=== PATIENT | male | born 1950 | race Caucasian/White ===

== ENCOUNTER → 2019-10-03 14:26 | Outpatient (CLI) | payer MEDICARE, SELFPAY | PROVIDERS: Visit Provider Nurse Practitioner Family | DX: J02.9 Acute pharyngitis, unspecified (principal) | CPT/HCPCS: 87070 ==

== ENCOUNTER → 2020-01-15 07:01 | Outpatient (CLI) | payer MEDICARE, SELFPAY ==
[2020-01-15 08:05] LABS: Alanine Aminotransferase 48 IU/L (<50); Albumin 4.6 g/dL (3.5-5.0); Albumin Globulin Ratio 1.5 (1.0-2.8); Alkaline Phosphatase 63 U/L (38-126); Aspartate Aminotransferase 37 IU/L (17-59); BUN Creatinine Ratio 11.8 (6-22); Blood Urea Nitrogen 10 mg/dL (9-20); Calcium 9.8 mg/dL (8.4-10.2); Carbon Dioxide 28 mmol/L (22-32); Chloride 105 mmol/L (98-107); Cholesterol 193 mg/dL (140-199); Estimated Glomerular Filt Rate > 60.0 mL/min (>60); Globulin 3.1 g/dL (1.7-4.1); Glucose 110 mg/dL (80-110); HDL Cholesterol 44 mg/dL (40-60); HEMOLYSIS < 15 (0-50); LDL Cholesterol Calculated 112 mg/dL (<100); Potassium 4.5 mmol/L (3.4-5.1); Sodium 139 mmol/L (137-145); Total Protein 7.7 g/dL (6.3-8.2); Triglycerides 187 mg/dL (35-150)
[2020-01-15 08:06] LABS: Add Manual Diff / Slide Review NO; Basophils Absolute Auto 100 /uL (0-100); Basophils Percent Auto 1.1 % (0-2); Eosinophils Absolute Auto 100 /uL (0-450); Eosinophils Percent Auto 2.2 % (2-4); Hematocrit 47.9 % (41-53); Hemoglobin 16.5 g/dL (13.5-17.5); Lymphocytes Absolute Auto 1900 /uL (1100-4500); Lymphocytes Percent Auto 32.2 % (25-40); Mean Corpuscular HGB Conc 34.4 % (30-36); Mean Corpuscular Volume 93.1 fL (80-100); Monocytes Absolute Auto 600 /uL (0-900); Monocytes Percent Auto 10.4 % (3-14); Neutrophils Absolute Auto 3200 /uL (1500-7000); Neutrophils Percent Auto 54.1 % (50-75); Platelet Count 184 X10^3/uL (150-400); Red Blood Cell Count 5.14 X10^6/uL (4.5-5.9); Red Cell Distribution Width 12.9 % (11.6-14.8); White Blood Cell Count 5.8 X10^3/uL (4.5-11.0)
[2020-01-15 08:29] LABS: Free T3, Triiodothyronine Free 3.92 pg/mL (2.77-5.27); Free T4, Direct Thyroxine 0.94 ng/dL (0.78-2.19)
[2020-01-15 08:43] LABS: Thyroid Stimulating Hormone 1.98 uIU/mL (0.47-4.68)
== END ==
PROVIDERS: PCP Family Medicine; Referring Provider Family Medicine; Visit Provider Family Medicine
DX: Z13.29 Encounter for screening for other suspected endocrine disorder (principal); E55.9 Vitamin D deficiency, unspecified; E78.5 Hyperlipidemia, unspecified; I10 Essential (primary) hypertension; N40.1 Benign prostatic hyperplasia with lower urinary tract symptoms; Z12.11 Encounter for screening for malignant neoplasm of colon
CPT/HCPCS: 36415; 80053; 80061; 82274; 82306; 84153; 84439; 84443; 84481; 85025

== ENCOUNTER → 2020-09-01 15:55 | Outpatient (CLI) | payer MEDICARE, SELFPAY ==
--- NOTE | 2020-09-01 16:19 | DI.RAD.S_ITS ---
PROCEDURE: XR KUB INDICATIONS: possible kidney stone R/O blockage TECHNIQUE: One view of the abdomen acquired. COMPARISON: None. FINDINGS: Surgical changes and devices: None. Bowel: Bowel gas pattern is normal. Soft tissues: No suspicious abdominal calcifications. Visualized solid organ contours appear normal in size. Right upper quadrant presumed cholecystectomy clips. Bones: No suspicious bony lesions. IMPRESSION: Nonspecific bowel gas pattern. Scattered surgical clips right upper quadrant likely reflect prior cholecystectomy. A urinary tract stone is not seen. Dictated by: Chris Hood M.D. on 09/01/2020 at 16:49 Approved by: Chris Hood M.D. on 09/01/2020 at 16:49
[2020-09-01 16:51] LABS: Hematocrit 46.1 % (41-53); Hemoglobin 15.6 g/dL (13.5-17.5); Mean Corpuscular HGB Conc 33.8 % (30-36); Mean Corpuscular Hemoglobin 31.6 PG (26-34); Mean Corpuscular Volume 93.7 fL (80-100); Platelet Count 177 X10^3/uL (150-400); Red Blood Cell Count 4.93 X10^6/uL (4.5-5.9); Red Cell Distribution Width 13.1 % (11.6-14.8); White Blood Cell Count 6.9 X10^3/uL (4.5-11.0)
[2020-09-01 17:08] LABS: BUN Creatinine Ratio 20.5 (6-22); Blood Urea Nitrogen 15 mg/dL (9-20); Calcium 9.2 mg/dL (8.4-10.2); Carbon Dioxide 25 mmol/L (22-32); Chloride 105 mmol/L (98-107); Estimated Glomerular Filt Rate > 60.0 mL/min (>60); Glucose 123 mg/dL (80-110); HEMOLYSIS 19 (0-50); Potassium 3.7 mmol/L (3.4-5.1); Sodium 138 mmol/L (137-145)
[2020-09-01 19:08] LABS: Bacteria Urine None Seen; WBC Urine None Seen (0-5/HPF)
[2020-09-01 19:19] LABS: Appearance Urine UA CLOUDY; Bilirubin Urine UA NEGATIVE (NEGATIVE); Color Urine UA YELLOW; Glucose Urine UA NEGATIVE (Negative); Ketones Urine UA TRACE (NEGATIVE); Leukocyte Esterase Urine UA NEGATIVE (NEGATIVE); Nitrite Urine UA NEGATIVE (Negative); Occult Blood Urine UA 2+ (Negative); Protein Urine UA NEGATIVE (Negative); Specific Gravity Urine UA 1.025 (1.000-1.035); Urobilinogen Urine UA 0.2 E.U./dL (0.2)
[2020-09-01 19:24] LABS: Amorphous Sediment Urine 3+; RBC Urine 1-5/HPF (0-5/HPF)
[2020-09-01 19:25] LABS: Culture Indicated Urine Cult Not Indicated
== END ==
PROVIDERS: PCP Family Medicine; Referring Provider Nurse Practitioner Family; Visit Provider Nurse Practitioner Family
DX: Z00.00 Encounter for general adult medical examination without abnormal findings (principal); M54.5 Low back pain; R10.9 Unspecified abdominal pain; R31.9 Hematuria, unspecified; Z87.442 Personal history of urinary calculi
CPT/HCPCS: 36415; 74018; 80048; 81001; 85027

== ENCOUNTER → 2020-11-05 08:58 | Outpatient (CLI) | payer MEDICARE, SELFPAY ==
[2020-11-05 10:32] LABS: Calcium 9.4 mg/dL (8.4-10.2); Uric Acid 6.8 mg/dL (3.5-8.5)
[2020-11-05 11:02] LABS: Prostate Specific Antigen 5.81 ng/mL (0.10-4.00)
== END ==
PROVIDERS: PCP Family Medicine; Referring Provider Specialist; Visit Provider Specialist
DX: R31.9 Hematuria, unspecified (principal); Z87.442 Personal history of urinary calculi; R97.20 Elevated prostate specific antigen [PSA]
CPT/HCPCS: 36415; 82310; 84153; 84550

== ENCOUNTER → 2020-11-10 09:08 | Outpatient (CLI) | payer MEDICARE, SELFPAY ==
--- NOTE | 2020-11-10 09:09 | DI.CT.S_ITS ---
PROCEDURE: CT KIDNEY URETER BLADDER (KUB) INDICATIONS: hematuria TECHNIQUE: Noncontrast 5 mm thick sections acquired from the diaphragms to the symphysis. 5 mm thick coronal and sagittal reformats were then performed. For radiation dose reduction, the following was used: automated exposure control, adjustment of mA and/or kV according to patient size. COMPARISON: None. FINDINGS: Image quality: Excellent. Lung bases: Lung bases are clear. Heart size is normal. Urinary system: No hydronephrosis. Increased attenuation lesion with calcifications seen in the right kidney measuring approximately 1.3 cm image 30/2 which is indeterminate. Ureters appear nondilated. The bladder is largely decompressed. Other solid organs: Liver is normal in size. Gallbladder is surgically absent. Pancreas is normal in contours. Spleen is normal in size. No adrenal nodules. Peritoneum and bowel: Unenhanced bowel loops demonstrate normal wall thickness and caliber. No free fluid or air. Normal appendix. Colonic diverticulosis is seen without evidence of acute complication. Nodes and vessels: No retroperitoneal or mesenteric adenopathy by size criteria. Aorta and inferior vena cava are normal in caliber. Abdominal wall: No ventral hernias. Pelvis: No free pelvic fluid. Fat containing left inguinal hernia. Bones: No suspicious bony lesions. No vertebral body compression fractures. IMPRESSION: No hydronephrosis. No urolithiasis. 1.3 cm right renal lesion, with amorphous and scattered calcifications, technically indeterminate. Given the absence of any relevant prior studies, recommend continued surveillance to exclude malignant possibilities with CT in 6 months for initial follow-up. Additional chronic and incidental findings as above. Dictated by: Jd Weber M.D. on 11/10/2020 at 9:51 Approved by: Jd Weber M.D. on 11/10/2020 at 9:59
== END ==
PROVIDERS: PCP Family Medicine; Referring Provider Specialist; Visit Provider Specialist
DX: R31.9 Hematuria, unspecified (principal); Z87.442 Personal history of urinary calculi; N28.89 Other specified disorders of kidney and ureter
CPT/HCPCS: 74176

== ENCOUNTER → 2020-11-19 11:21 | Outpatient (CLI) | payer MEDICARE, SELFPAY ==
[2020-11-19] MEDS: COVID-19 VACC #1, MRNA(MOD) 100 MCG/0.5 ML VIAL IM (11:28)
== END ==
PROVIDERS: PCP Family Medicine; Visit Provider Internal Medicine
DX: Z23 Encounter for immunization (principal)
CPT/HCPCS: 0011A; 91301

== ENCOUNTER → 2020-12-17 12:22 | Outpatient (CLI) | payer MEDICARE, SELFPAY ==
[2020-12-17] MEDS: COVID-19 VACC #2, MRNA(MOD) 100 MCG/0.5 ML VIAL IM (12:40)
== END ==
PROVIDERS: PCP Family Medicine; Visit Provider Internal Medicine
DX: Z23 Encounter for immunization (principal)
CPT/HCPCS: 0012A; 91301

== ENCOUNTER → 2021-01-31 07:19 | Outpatient (CLI) | payer MEDICARE, SELFPAY ==
[2021-01-31 08:08] LABS: Add Manual Diff / Slide Review NO; Basophils Absolute Auto 0 /uL (0-100); Basophils Percent Auto 0.6 % (0-2); Eosinophils Absolute Auto 100 /uL (0-450); Eosinophils Percent Auto 1.7 % (2-4); Hematocrit 45.3 % (41-53); Lymphocytes Absolute Auto 1800 /uL (1100-4500); Lymphocytes Percent Auto 32.9 % (25-40); Mean Corpuscular HGB Conc 35.2 % (30-36); Mean Corpuscular Hemoglobin 32.5 PG (26-34); Mean Corpuscular Volume 92.3 fL (80-100); Monocytes Absolute Auto 600 /uL (0-900); Monocytes Percent Auto 10.4 % (3-14); Neutrophils Absolute Auto 3000 /uL (1500-7000); Neutrophils Percent Auto 54.4 % (50-75); Platelet Count 182 X10^3/uL (150-400); Red Blood Cell Count 4.91 X10^6/uL (4.5-5.9); Red Cell Distribution Width 12.8 % (11.6-14.8); White Blood Cell Count 5.5 X10^3/uL (4.5-11.0)
[2021-01-31 08:16] LABS: Alanine Aminotransferase 40 IU/L (<50); Albumin 4.1 g/dL (3.5-5.0); Albumin Globulin Ratio 1.5 (1.0-2.8); Alkaline Phosphatase 64 U/L (38-126); Aspartate Aminotransferase 34 IU/L (17-59); BUN Creatinine Ratio 17.5 (6-22); Bilirubin Total 0.8 mg/dL (0.2-1.3); Blood Urea Nitrogen 14 mg/dL (9-20); Calcium 9.2 mg/dL (8.4-10.2); Carbon Dioxide 27 mmol/L (22-32); Chloride 106 mmol/L (98-107); Cholesterol 174 mg/dL (140-199); Estimated Glomerular Filt Rate > 60.0 mL/min (>60); Globulin 2.7 g/dL (1.7-4.1); Glucose 105 mg/dL (80-110); HDL Cholesterol 53 mg/dL (40-60); HEMOLYSIS < 15 (0-50); LDL Cholesterol Calculated 92 mg/dL (<100); Sodium 138 mmol/L (137-145); Total Protein 6.8 g/dL (6.3-8.2); Triglycerides 143 mg/dL (35-150)
[2021-01-31 09:04] LABS: Prostate Specific Antigen 4.27 ng/mL (0.10-4.00)
== END ==
PROVIDERS: PCP Family Medicine; Referring Provider Specialist; Visit Provider Family Medicine
DX: R97.20 Elevated prostate specific antigen [PSA] (principal); I10 Essential (primary) hypertension
CPT/HCPCS: 36415; 80053; 80061; 84153; 85025

== ENCOUNTER 2021-08-02 09:35 | Emergency (ER) | payer MEDICARE, SELFPAY ==
[2021-08-02] VITALS (9 sets, daily range): BP systolic 134–180; BP diastolic 66–92; PULSE 67–85; RESP 14–34; TEMP 37.4; O2SAT 94–100; BMI 33.0
--- NOTE | 2021-08-02 09:44 | ED_ITS ---
HPI - Abdominal Pain General Chief Complaint: Abdominal Pain Stated Complaint: Poss Diverticulitis Time Seen by Provider: 08/02/21 09:41 Source: patient Mode of arrival: Ambulatory Limitations: no limitations History of Present Illness HPI narrative: 70-year-old male nonsmoker with history of hypertension presents with his in the chief complaint of left lower quadrant pain gradually worsening over the past few days. He states it is worse with motion and improves with rest. It had started off a bit more generalized and is now solidly centered in his left lower quadrant. He has had some decreased appetite but denies nausea or vomiting. He denies any diarrhea or constipation. He has had no fever or chills. Related Data Home Medications Medication Instructions Recorded Confirmed Total restore supplement PO 02/24/20 02/24/21 vitamin-D 3 PO 02/24/20 02/24/21 Previous Rx's Medication Instructions Recorded amlodipine 5 mg tablet See Rx Instructions .ROUTE 05/03/21 .COMPLEX #90 tab lisinopril 5 mg tablet See Rx Instructions .ROUTE 05/03/21 .COMPLEX #90 tab rosuvastatin 5 mg tablet See Rx Instructions .ROUTE 05/03/21 .COMPLEX #90 tab amoxicillin 875 mg-potassium 1 tab PO BID #20 tab 08/02/21 clavulanate 125 mg tablet (Augmentin) hydrocodone 5 mg-acetaminophen 325 1 tab PO Q4-6H PRN #10 tab 08/02/21 mg tablet ondansetron 4 mg disintegrating 4 mg PO TID-QID PRN #10 tab 08/02/21 tablet Allergies Allergy/AdvReac Type Severity Reaction Status Date / Time Sulfa (Sulfonamide Allergy Intermediate HIVES Verified 08/02/21 09:42 Antibiotics) Patient History Medical History BPH (benign prostatic hyperplasia) BPH w urinary obs/LUTS Chicken pox (~1954) Chronic back pain (~1999) Elevated PSA Facial rash Fractures (~1987) Hematuria History of elevated PSA (~2017) History of kidney stones History of skin disorder (~2017) Hypertension (~1987) Kidney stones (~2009) Left flank pain Measles (~1955) Mumps (~1955) Seborrheic keratosis Tinnitus Vision disorder Vitamin D deficiency Surgical History Anesthesia History of cholecystectomy (~2003) History of repair of ACL (~2009) S/P right rotator cuff repair (~2006) Family History Father Sepsis Multiple myeloma Cancer of kidney Mother Metabolic encephalopathy Alcohol abuse Sister Diabetes mellitus Social History marital status: Smoking Status: Never smoker alcohol intake: current caffeine: Yes Smoking Status: Never smoker alcohol intake frequency: holidays/special occasions only Substance Use Type: does not use Exam Narrative Exam Narrative: GENERAL: [70] year old patient appears stated age. Well- developed patient, in mild distress. HEAD: Atraumatic. Normocephalic. EYES: Pupils equal round and reactive. Extraocular motions intact. No scleral icterus. No injection or drainage. ENT: Nose without bleeding, purulent drainage. Throat without erythema, tonsillar hypertrophy or exudate. Airway patent. NECK: Trachea midline. Non tender CARDIOVASCULAR: Regular rate and rhythm without murmurs, gallops, or rubs. RESPIRATORY: Clear to auscultation. Breath sounds equal bilaterally. No wheezes, rales, or rhonchi. GASTROINTESTINAL: Abdomen soft, tennder in LLQ without rebound, nondistended. EXTREMITIES: No edema or joint tenderness. BACK: Nontender without deformity or crepitance. No flank tenderness. NEURO: AOx3. SKIN: No rash or erythema of visible areas Initial Vital Signs Initial Vital Signs: Vital Signs Temperature 99.3 F 08/02/21 09:38 Pulse Rate 85 08/02/21 09:38 Respiratory Rate 14 08/02/21 09:38 Blood Pressure 180/92 H 08/02/21 09:38 Pulse Oximetry 97 08/02/21 09:38 Course Orders Ordered: ED Orders 08/02/21 10:32 CT abdomen pelvis w con Stat Vital Signs Vital signs: Vital Signs - 8 hr 08/02/21 11:30 08/02/21 11:49 Pulse Rate 67 74 Respiratory Rate 27 H 18 Blood Pressure 134/67 134/67 Pulse Oximetry 94 100 MDM - Abdominal Pain Lab Data Result diagrams: 08/02/21 10:07 08/02/21 10:07 Labs: Lab Results 10/05/21 10/05/21 Range/Units 10:07 10:07 WBC 12.0 H (4.5-11.0) X10^3/uL RBC 4.69 (4.5-5.9) X10^6/uL Hgb 14.8 (13.5-17.5) g/dL Hct 43.3 (41-53) % MCV 92.5 (80-100) fL MCH 31.5 (26-34) PG MCHC 34.1 (30-36) % RDW 13.0 (11.6-14.8) % Plt Count 186 (150-400) X10^3/uL Neut % (Auto) 76.8 H (50-75) % Lymph % (Auto) 13.2 L (25-40) % [place] % (Auto) 9.5 (3-14) % Eos % (Auto) 0.3 L (2-4) % Baso % (Auto) 0.2 (0-2) % Neut # (Auto) 9200 H (5720-1229) /uL Lymph # (Auto) 1600 (9568-1321) /uL [place] # (Auto) 1100 H (0-900) /uL Eos # (Auto) 0 (0-450) /uL Baso # (Auto) 0 (0-100) /uL Sodium 138 (137-145) mmol/L Potassium 3.8 (3.4-5.1) mmol/L Chloride 104 (98-107) mmol/L Carbon Dioxide 25 (22-32) mmol/L BUN 9 (9-20) mg/dL Creatinine 0.79 (0.66-1.25) mg/dL Estimated GFR > 60.0 (>60) mL/min BUN/Creatinine Ratio 11.4 (6-22) Glucose 122 H (80-110) mg/dL Calcium 9.4 (8.4-10.2) mg/dL Total Bilirubin 1.1 (0.2-1.3) mg/dL AST 22 (17-59) IU/L ALT 21 (<50) IU/L Alkaline Phosphatase 59 (38-126) U/L Total Protein 7.2 (6.3-8.2) g/dL Albumin 4.3 (3.5-5.0) g/dL Globulin 2.9 (1.7-4.1) g/dL Albumin/Globulin Ratio 1.5 (1.0-2.8) Lipase 42 (23-300) U/L Imaging Data CT scan - abdomen/pelvis: Radiologist's Impression: [address] [address] [address] Scan Report Signed Patient: Mando De La Cruz MR#: [id number] : 1950 Acct:[id number] Age/Sex: 70 / M Date of Service: 08/02/21 Loc: ED Accession Number: [id number] ?? Procedure: CT abdomen pelvis w con Ordering Provider: Fortino Carrasquillo D.O. PROCEDURE:? CT ABDOMEN PELVIS W CON ? INDICATIONS:? severe LLQ pain, hx diverticulosis ? TECHNIQUE:? After the administration of intravenous contrast, axial sections acquired from the lung bases to the pubic symphysis.? Coronal and sagittal reformats were performed.? For radiation dose reduction, the following was used:? automated exposure control, adjustment of mA and/or kV according to patient size.? ? COMPARISON:? [facility], CT, CT KIDNEY URETER BLADDER (KUB), 11/10/2020, 9:11. ? FINDINGS:? Image quality:? Excellent.? ? Lung bases:? Unremarkable. Heart:? Moderate calcification of the coronary vasculature. ? ABDOMEN: Liver:? Unremarkable.? ? Gallbladder:? Is surgically absent? ? Biliary ducts:? Unremarkable.? ? Pancreas:? Unremarkable.? ? Spleen:? Unremarkable.? ? Adrenal Glands:? Unremarkable.? ? Kidneys and Ureters:? No change in calcified focus involving the right interpolar kidney posteriorly which is partially exophytic, measuring roughly 17 mm diameter. ? Stomach and Bowel:? Small hiatal hernia.? Stomach, and small bowel are otherwise unremarkable.? Appendix is normal.? Colon is nondistended.? Diverticulosis of the descending and sigmoid colon is present.? There is moderate thickening with surr ounding fat stranding involving the proximal sigmoid colon. Peritoneum:? No abnormal intraperitoneal fluid.? No free air.? ? Ventral Wall: ? No hernias.? Abdominal Nodes:? No retroperitoneal or mesenteric adenopathy by size criteria.? Vessels:? Aorta and inferior vena cava are normal in size.? ? PELVIS: Pelvic Organs:? Unremarkable.? ? Bladder:? Prostate is enlarged and indents the urinary bladder base, limiting evaluation of the urinary bladder base for masses. Pelvic Nodes: No enlarged lymph nodes.? Miscellaneous: No hernias are seen. ? ? ? Bones:? Unremarkable.? IMPRESSION:? 1. Diverticulitis of the proximal sigmoid colon.? Follow-up colonoscopy is recommended to exclude underlying neoplasm. 2. No change in indeterminate calcified right renal mass.? Urological consultation recommended. 3. Small hiatal hernia . 4. Coronary artery disease. 4. Enlarged prostate which indents the urinary bladder base.? Urinary bladder base neoplasm cannot be excluded.? ? ? Dictated by: Mouna Barajas M.D. on 08/02/2021 at 11:09 ? ? Approved by: Mouna Barajas M.D. on 08/02/2021 at 11:13 ? [facility] Narrative Medical decision making narrative: Patient with left lower quadrant pain for the past few days. He has a very reassuring history and physical exam. CT shows diverticulitis without abscess or perforation. His vital signs are stable. Pain is well controlled and he is able to tolerate orals. Return precautions have been given as questions have been answered to his apparent satisfaction Discharge Plan Departure Patient Disposition: Home Clinical Impression: Diverticulitis Instructions: DI for Diverticulitis Activity Restrictions/Additional Instructions: *You have been diagnosed with [abdominal pain secondary to diverticulitis. *What to do: *Please continue to take your regular medications as directed. [ x] New medication prescriptions sent to your pharmacy: [[facility] ] [ ] New medication written as a paper prescription [ ] No new medications given *Please follow up with your primary care provider in 2-3 days, call for an appointment. Let them know you were seen in the Emergency Department and that we ask that you be seen in follow up. We will electronically transmit a record of today's note if your PCP is in our system *If you do not have a primary care provider please contact the [facility] Resource line at [phone]. They will ask some questions about your medical history and help get you set up with a doctor in the community. *Return to Emergency Department if you should have any new, worsening or concerning symptoms, such as [fever greater than 101 F, shaking chills, worsening pain, persistent vomiting or other bothersome symptoms] Prescriptions: New hydrocodone-acetaminophen 5-325 mg tablet 1 tab PO Q4-6H PRN (Reason: pain) Qty: 10 RF: 0 amoxicillin-pot clavulanate [Augmentin] 875-125 mg tablet 1 tab PO BID Qty: 20 RF: 0 ondansetron 4 mg tablet,disintegrating 4 mg PO TID-QID PRN (Reason: nausea and vomiting) Qty: 10 RF: 0 No Action lisinopril 5 mg tablet See Rx Instructions .ROUTE .COMPLEX Qty: 90 RF: 1 amlodipine 5 mg tablet See Rx Instructions .ROUTE .COMPLEX Qty: 90 RF: 1 rosuvastatin 5 mg tablet See Rx Instructions .ROUTE .COMPLEX Qty: 90 RF: 1 vitamin-D 3 5,000 units PO RF: 0 Total restore supplement PO RF: 0 Referrals: Adrien Carver DO [Primary Care Provider] -
[2021-08-02 10:16] LABS: Add Manual Diff / Slide Review NO; Basophils Absolute Auto 0 /uL (0-100); Basophils Percent Auto 0.2 % (0-2); Eosinophils Absolute Auto 0 /uL (0-450); Eosinophils Percent Auto 0.3 % (2-4); Hematocrit 43.3 % (41-53); Hemoglobin 14.8 g/dL (13.5-17.5); Lymphocytes Absolute Auto 1600 /uL (1100-4500); Lymphocytes Percent Auto 13.2 % (25-40); Mean Corpuscular HGB Conc 34.1 % (30-36); Mean Corpuscular Hemoglobin 31.5 PG (26-34); Mean Corpuscular Volume 92.5 fL (80-100); Monocytes Absolute Auto 1100 /uL (0-900); Monocytes Percent Auto 9.5 % (3-14); Neutrophils Absolute Auto 9200 /uL (1500-7000); Neutrophils Percent Auto 76.8 % (50-75); Platelet Count 186 X10^3/uL (150-400); Red Blood Cell Count 4.69 X10^6/uL (4.5-5.9)
--- NOTE | 2021-08-02 10:32 | DI.CT.S_ITS ---
PROCEDURE: CT ABDOMEN PELVIS W CON INDICATIONS: severe LLQ pain, hx diverticulosis TECHNIQUE: After the administration of intravenous contrast, axial sections acquired from the lung bases to the pubic symphysis. Coronal and sagittal reformats were performed. For radiation dose reduction, the following was used: automated exposure control, adjustment of mA and/or kV according to patient size. COMPARISON: [facility], CT, CT KIDNEY URETER BLADDER (KUB), 11/10/2020, 9:11. FINDINGS: Image quality: Excellent. Lung bases: Unremarkable. Heart: Moderate calcification of the coronary vasculature. ABDOMEN: Liver: Unremarkable. Gallbladder: Is surgically absent Biliary ducts: Unremarkable. Pancreas: Unremarkable. Spleen: Unremarkable. Adrenal Glands: Unremarkable. Kidneys and Ureters: No change in calcified focus involving the right interpolar kidney posteriorly which is partially exophytic, measuring roughly 17 mm diameter. Stomach and Bowel: Small hiatal hernia. Stomach, and small bowel are otherwise unremarkable. Appendix is normal. Colon is nondistended. Diverticulosis of the descending and sigmoid colon is present. There is moderate thickening with surrounding fat stranding involving the proximal sigmoid colon. Peritoneum: No abnormal intraperitoneal fluid. No free air. Ventral Wall: No hernias. Abdominal Nodes: No retroperitoneal or mesenteric adenopathy by size criteria. Vessels: Aorta and inferior vena cava are normal in size. PELVIS: Pelvic Organs: Unremarkable. Bladder: Prostate is enlarged and indents the urinary bladder base, limiting evaluation of the urinary bladder base for masses. Pelvic Nodes: No enlarged lymph nodes. Miscellaneous: No hernias are seen. Bones: Unremarkable. IMPRESSION: 1. Diverticulitis of the proximal sigmoid colon. Follow-up colonoscopy is recommended to exclude underlying neoplasm. 2. No change in indeterminate calcified right renal mass. Urological consultation recommended. 3. Small hiatal hernia . 4. Coronary artery disease. 4. Enlarged prostate which indents the urinary bladder base. Urinary bladder base neoplasm cannot be excluded. Dictated by: Mouna Barajas M.D. on 08/02/2021 at 11:09 Approved by: Mouna Barajas M.D. on 08/02/2021 at 11:13
[2021-08-02 10:37] LABS: Alanine Aminotransferase 21 IU/L (<50); Albumin 4.3 g/dL (3.5-5.0); Albumin Globulin Ratio 1.5 (1.0-2.8); Alkaline Phosphatase 59 U/L (38-126); Aspartate Aminotransferase 22 IU/L (17-59); BUN Creatinine Ratio 11.4 (6-22); Bilirubin Total 1.1 mg/dL (0.2-1.3); Blood Urea Nitrogen 9 mg/dL (9-20); Calcium 9.4 mg/dL (8.4-10.2); Carbon Dioxide 25 mmol/L (22-32); Chloride 104 mmol/L (98-107); Estimated Glomerular Filt Rate > 60.0 mL/min (>60); Globulin 2.9 g/dL (1.7-4.1); Glucose 122 mg/dL (80-110); HEMOLYSIS < 15 (0-50); Lipase 42 U/L (23-300); Potassium 3.8 mmol/L (3.4-5.1); Sodium 138 mmol/L (137-145); Total Protein 7.2 g/dL (6.3-8.2)
== END 2021-08-02 11:50 | disposition home or self-care (01) ==
PROVIDERS: Emergency Provider Emergency Medicine; PCP Family Medicine
DX: K57.92 Diverticulitis of intestine, part unspecified, without perforation or abscess without bleeding (principal)
CPT/HCPCS: 36415; 74177; 80053; 83690; 85025; 93005; 99283; 99284

== ENCOUNTER → 2021-08-04 08:49 | Outpatient (CLI) | payer MEDICARE, SELFPAY ==
[2021-08-04 10:19] LABS: Prostate Specific Antigen 5.22 ng/mL (0.10-4.00)
== END ==
PROVIDERS: PCP Family Medicine; Referring Provider Specialist; Visit Provider Specialist
DX: C61 Malignant neoplasm of prostate (principal)
CPT/HCPCS: 36415; 84153

== ENCOUNTER → 2021-08-12 16:01 | Outpatient (CLI) | payer MEDICARE, SELFPAY ==
--- NOTE | 2021-08-12 16:03 | DI.RAD.S_ITS ---
PROCEDURE: XR HAND LT MIN 3V INDICATIONS: trauma TECHNIQUE: 3 views of the hand(s) acquired. COMPARISON: None. FINDINGS: Bones: No fractures or dislocations. Osteoarthritic changes are noted along radial aspect of left wrist and throughout MCP joints and interphalangeal joints. Carpal bones are normally aligned. No suspicious bony lesions. Soft tissues: No suspicious soft tissue calcifications. IMPRESSION: No acute left hand fracture or dislocation. 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 Dictated by: Marcelino Arnett M.D. on 08/12/2021 at 16:19 Approved by: Marcelino Arnett M.D. on 08/12/2021 at 16:22
== END ==
PROVIDERS: PCP Family Medicine; Referring Provider Nurse Practitioner; Visit Provider Nurse Practitioner
DX: R52 Pain, unspecified (principal); M19.042 Primary osteoarthritis, left hand; M19.032 Primary osteoarthritis, left wrist; S69.92XA Unspecified injury of left wrist, hand and finger(s), initial encounter; X58.XXXA Exposure to other specified factors, initial encounter
CPT/HCPCS: 73130

== ENCOUNTER → 2021-09-09 09:00 | Outpatient (CLI) | payer MEDICARE, SELFPAY ==
[2021-09-09] MEDS: COVID-19 VACC #3, MRNA(MOD) 50 MCG/0.25 ML VIAL IM (09:07)
== END ==
PROVIDERS: PCP Family Medicine; Visit Provider Internal Medicine
DX: Z23 Encounter for immunization (principal)
CPT/HCPCS: 0013A; 91301

== ENCOUNTER → 2021-10-03 15:35 | Outpatient (CLI) | payer MEDICARE, SELFPAY ==
[2021-10-03 18:28] LABS: Prostate Specific Antigen 4.65 ng/mL (0.10-4.00)
== END ==
PROVIDERS: PCP Family Medicine; Referring Provider Specialist; Visit Provider Specialist
DX: R97.20 Elevated prostate specific antigen [PSA] (principal)
CPT/HCPCS: 36415; 84153

== ENCOUNTER 2022-01-04 08:48 | Emergency (ER) | payer MEDICARE, SELFPAY ==
[2022-01-04] VITALS (17 sets, daily range): BP systolic 124–183; BP diastolic 62–89; PULSE 65–75; RESP 18–25; TEMP 36.5; O2SAT 92–98; BMI 32.3
--- NOTE | 2022-01-04 09:02 | DI.CT.S_ITS ---
PROCEDURE: CT CERVICAL SPINE WO CON INDICATIONS: syncope TECHNIQUE: Noncontrast 3 mm thick sections acquired from the skull base to the T4 level. Sagittal and coronal reformats were then constructed. For radiation dose reduction, the following was used: automated exposure control, adjustment of mA and/or kV according to patient size. COMPARISON: None. FINDINGS: Image quality: Excellent. Bones: No acute, displaced fracture or retropulsion. The vertebral body heights are maintained. Mild to moderate disc height loss with small posterior disc osteophyte complexes at C5-C7. Visualized superior ribs are intact. Soft tissues: Prevertebral soft tissues are normal in thickness. No paravertebral hematomas. No apical pneumothoraces. IMPRESSION: No acute osseous abnormality. Dictated by: Eric Wayne M.D. on 01/04/2022 at 9:29 Approved by: Eric Wayne M.D. on 01/04/2022 at 9:33
--- NOTE | 2022-01-04 09:02 | DI.CT.S_ITS ---
PROCEDURE: CT HEAD/BRAIN WO CON INDICATIONS: syncope TECHNIQUE: Noncontrast 4.5 mm thick angled axial sections acquired from the foramen magnum to the vertex, with coronal and sagittal reformats. For radiation dose reduction, the following was used: automated exposure control, adjustment of mA and/or kV according to patient size. COMPARISON: None. FINDINGS: Image quality: Excellent. CSF spaces: Basal cisterns are patent. No extra-axial fluid collections. The ventricles are symmetric in size and shape. Brain: No intracranial bleeds or masses. There is cerebral volume loss for age, with resultant ventricular and sulcal prominence. There are periventricular and deep white matter chronic small vessel ischemic changes. There is intracranial internal carotid artery atherosclerosis. Skull and face: Calvarium and visualized facial bones appear intact, without suspicious lesions. Sinuses: Visualized sinuses and mastoids are clear. IMPRESSION: No acute intracranial abnormality. Dictated by: Eric Wayne M.D. on 01/04/2022 at 9:33 Approved by: Eric Wayne M.D. on 01/04/2022 at 9:34
--- NOTE | 2022-01-04 09:05 | DI.RAD.S_ITS ---
PROCEDURE: XR CHEST 1V INDICATIONS: syncope TECHNIQUE: One view of the chest was acquired. COMPARISON: None. FINDINGS: Surgical changes and devices: None. Lungs and pleura: Lungs are clear. No pleural effusions or pneumothorax. Mediastinum: Mediastinal contours appear normal. Heart size is normal. Bones and chest wall: No suspicious bony lesions. Overlying soft tissues appear unremarkable. IMPRESSION: No acute pulmonary process. Dictated by: Layne Looney M.D. on 01/04/2022 at 9:42 Approved by: Layne Looney M.D. on 01/04/2022 at 9:42
--- NOTE | 2022-01-04 09:06 | ED_ITS ---
HPI - Syncope General Chief Complaint: Syncope Stated Complaint: SYNCOPE, HIT HEAD, C COLLAR Time Seen by Provider: 01/04/22 08:53 Source: patient and EMS Mode of arrival: Ambulatory Limitations: no limitations History of Present Illness HPI narrative: Patient is a 71-year-old male with history of hypertension BPH presenting today with a syncopal episode. He says he was standing at the kitchen sink when he suddenly fell backwards and hit his head on a cabinet hand. He had a brief loss of consciousness and his been nauseous with vomiting since. EMS was called. He is not on anti-platelet or anticoagulation medication. He has no numbness tingling weakness. He is complaining of neck pain. He reports not having much warning before passing out. He denies chest pain or palpitations. He woke up this morning feeling his normal self. No fever or chills. Related Data Home Medications Medication Instructions Recorded Confirmed Total restore supplement PO 02/24/20 10/13/21 vitamin-D 3 PO 02/24/20 10/13/21 Previous Rx's Medication Instructions Recorded amoxicillin 875 mg-potassium 1 tab PO BID #20 tab 08/02/21 clavulanate 125 mg tablet (Augmentin) hydrocodone 5 mg-acetaminophen 325 1 tab PO Q4-6H PRN #10 tab 08/02/21 mg tablet ondansetron 4 mg disintegrating 4 mg PO TID-QID PRN #10 tab 08/02/21 tablet amlodipine 5 mg tablet See Rx Instructions .ROUTE 09/21/21 .COMPLEX #90 tab lisinopril 5 mg tablet See Rx Instructions .ROUTE 09/21/21 .COMPLEX #90 tab rosuvastatin 5 mg tablet See Rx Instructions .ROUTE 09/21/21 .COMPLEX #90 tab ondansetron 4 mg disintegrating 4 mg PO Q8H PRN #10 tab 01/04/22 tablet Allergies Allergy/AdvReac Type Severity Reaction Status Date / Time Sulfa (Sulfonamide Allergy Intermediate HIVES Verified 10/13/21 13:27 Antibiotics) Review of Systems Review of Systems Narrative: GENERAL: Denies chills, fatigue, malaise, fever, sweats, travel HEENT: Denies sinus pain, ear pain, sore throat, difficulty swallowing, neck pain RESPIRATORY: Denies dyspnea, cough, wheezing, hemoptysis, sputum. CARDIOVASCULAR: Denies chest pain, palpitations, orthopnea, edema GASTROINTESTINAL: Denies nausea, vomiting, abdominal pain, diarrhea, constipation, melena. : Denies dysuria, frequency, incontinence, hematuria, urinary retention, flank pain. MUSCULOSKELETAL: Denies weakness, joint pain, or bony pain SKIN: No rash, no erythema, no pruritus NEUROLOGIC: + syncope PSYCHIATRIC: No concerning psychosocial issues. 12 point review of systems is negative except for those stated above and HPI Patient History Medical History BPH (benign prostatic hyperplasia) BPH w urinary obs/LUTS Chicken pox (~1954) Chronic back pain (~1999) Elevated PSA Facial rash Fractures (~1987) Hematuria History of elevated PSA (~2017) History of kidney stones History of skin disorder (~2017) Hypertension (~1987) Kidney stones (~2009) Left flank pain Measles (~1955) Mumps (~1955) Seborrheic keratosis Tinnitus Vision disorder Vitamin D deficiency Surgical History Anesthesia History of cholecystectomy (~2003) History of repair of ACL (~2009) S/P right rotator cuff repair (~2006) Family History Father Sepsis Multiple myeloma Cancer of kidney Mother Metabolic encephalopathy Alcohol abuse Sister Diabetes mellitus Social History marital status: Smoking Status: Never smoker alcohol intake: current caffeine: Yes Smoking Status: Never smoker alcohol intake frequency: holidays/special occasions only Substance Use Type: does not use Exam Initial Vital Signs Initial Vital Signs: Vital Signs Temperature 97.7 F 01/04/22 08:48 Pulse Rate 66 01/04/22 08:48 Respiratory Rate 18 01/04/22 08:48 Blood Pressure 183/89 H 01/04/22 08:48 Pulse Oximetry 96 01/04/22 08:48 GENERAL: Alert well-appearing 71-year-old HEENT: Head, posterior abrasion,EOMI, pupils reactive, face symmetric, moist mucous membranes NECK: Cervical tenderness in C-collar CARDIOVASCULAR: Regular rate and rhythm without murmurs, rubs or gallops. RESPIRATORY: Breath sounds equal bilaterally, no wheezes rales or rhonchi. ABDOMEN: Soft, nontender. Normoactive bowel sounds all 4 quadrants. No guardin g or rebound. EXTREMITIES: Normal range of motion, no clubbing or edema. Neurovascularly intact NEUROLOGICAL: Alert and oriented x4.Normal gait and speech. Cranial nerves II through XII grossly intact. Good [id number], good [id number], strength equal bilaterally, no dysarthria or aphasia, sensation in tact to soft touch bilaterally, no visual changes, no facial droop SKIN: Warm, dry, no laceration, no petechiae, no rashes or lesions. Scores NIH Stroke Scale Level of Conciousness: Alert, keenly responsive Ask month/age: Answers both questions correctly. Open/close eyes, close hand: Performs both tasks correctly Best gaze horizontal: Normal Visual mary: No visual loss Facial palsy: Normal symetrical movement Left arm drift: No drift for full 10 sec Right arm drift: No drift for full 10 sec Left leg drift: No drift for full 5 sec Right leg drift: No drift for full 5 sec Limb ataxia: Absent Sensory on face/arms/legs: Normal, no sensory loss Best language: No aphasia, normal Dysarthria: Normal Extinction or inattention: No abnormality Total NIH Stroke scale score: 0 Course Orders Ordered: ED Orders 01/04/22 12:32 Urine Microscopic Stat Discontinued Medications Sodium Chloride (Normal Saline 0.9%) 1,000 mls @ 1,000 mls/hr IV CONT GABBY Last Infusion: 01/04/22 10:59 Dose: 0 mls/hr Documented by: Admin: 01/04/22 09:46 Dose: 1,000 mls/hr Documented by: MYNOR Metoclopramide HCl (Metoclopramide 10 Mg/2 Ml Inj) 10 mg IV NOW ONE Stop: 01/04/22 09:42 Last Admin: 01/04/22 09:47 Dose: 10 mg Documented by: MYNOR Vital Signs Vital signs: Vital Signs - 8 hr 01/04/22 11:12 01/04/22 11:17 01/04/22 11:21 Pulse Rate 69 70 69 Pulse Rate [Orthostatic Lying] Pulse Rate [Orthostatic Sitting] Pulse Rate [Orthostatic Standing] Respiratory Rate 20 20 Blood Pressure 131/64 142/76 H 144/69 H Blood Pressure [Orthostatic Lying] Blood Pressure [Orthostatic Sitting] Blood Pressure [Orthostatic Standing] Pulse Oximetry 96 98 98 01/04/22 11:30 01/04/22 11:34 01/04/22 12:00 Pulse Rate 66 66 Pulse Rate [Orthostatic Lying] 70 Pulse Rate [Orthostatic Sitting] 69 Pulse Rate [Orthostatic Standing] 68 Respiratory Rate 18 19 Blood Pressure 141/68 H 129/62 Blood Pressure [Orthostatic Lying] 131/64 Blood Pressure [Orthostatic Sitting] 142/76 H Blood Pressure [Orthostatic Standing] 144/69 H Pulse Oximetry 97 97 01/04/22 12:20 01/04/22 12:30 01/04/22 12:40 Pulse Rate 75 71 71 Pulse Rate [Orthostatic Lying] Pulse Rate [Orthostatic Sitting] Pulse Rate [Orthostatic Standing] Respiratory Rate 18 18 20 Blood Pressure 129/62 132/64 128/71 Blood Pressure [Orthostatic Lying] Blood Pressure [Orthostatic Sitting] Blood Pressure [Orthostatic Standing] Pulse Oximetry 98 94 95 MDM - Syncope Lab Data Result diagrams: 01/04/22 08:27 01/04/22 08:27 Labs: Lab Results 01/04/22 01/04/22 01/04/22 Range/Units 08:27 08:27 12:32 WBC 9.4 (4.5-11.0) X10^3/uL RBC 5.11 (4.5-5.9) X10^6/uL Hgb 16.2 (13.5-17.5) g/dL Hct 47.6 (41-53) % MCV 93.0 (80-100) fL MCH 31.7 (26-34) PG MCHC 34.1 (30-36) % RDW 13.0 (11.6-14.8) % Plt Count 230 (150-400) X10^3/uL Neut % (Auto) 47.0 L (50-75) % Lymph % (Auto) 40.3 H (25-40) % [place] % (Auto) 10.5 (3-14) % Eos % (Auto) 1.3 L (2-4) % Baso % (Auto) 0.9 (0-2) % Neut # (Auto) 4400 (8061-6029) /uL Lymph # (Auto) 3800 (3152-3481) /uL [place] # (Auto) 1000 H (0-900) /uL Eos # (Auto) 100 (0-450) /uL Baso # (Auto) 100 (0-100) /uL Sodium 138 (137-145) mmol/L Potassium 3.8 (3.4-5.1) mmol/L Chloride 108 H (98-107) mmol/L Carbon Dioxide 23 (22-32) mmol/L BUN 12 (9-20) mg/dL Creatinine 0.91 (0.66-1.25) mg/dL Estimated GFR > 60.0 (>60) mL/min BUN/Creatinine Ratio 13.2 (6-22) Glucose 163 H (80-110) mg/dL Calcium 9.4 (8.4-10.2) mg/dL Total Bilirubin 1.4 H (0.2-1.3) mg/dL AST 34 (17-59) IU/L ALT 38 (<50) IU/L Alkaline Phosphatase 65 (38-126) U/L Total Creatine Kinase 94 (55-170) U/L CK-MB (CK-2) TNP CK-MB (CK-2) Rel Index TNP Troponin I < 0.012 (0.01-0.034) ng/mL Total Protein 7.9 (6.3-8.2) g/dL Albumin 4.8 (3.5-5.0) g/dL Globulin 3.1 (1.7-4.1) g/dL Albumin/Globulin Ratio 1.5 (1.0-2.8) Lipase 104 (23-300) U/L Urine RBC None seen (0-5/HPF) Urine WBC None seen (0-5/HPF) Amorphous Sediment 3+ Urine Bacteria None seen (None) Ur Culture Indicated? Cult not indicated Urine Dip Bedside Urine Glucose 100 mg/dl Bedside Urine Bilirubin - Negative Bedside Urine Ketone +/- 5 Urine Specific Chavies 1.030 Bedside Urine Occult Blood ++ Bedside Urine pH 5.5 Bedside Urine Protein + 30 Bedside Urine Urobilinogen 0.2 Bedside Urine Nitrite - Negative Bedside Urine Leukocytes - Negative Esterase Imaging Data CT scan - head: Radiologist's Impression: PROCEDURE:? CT HEAD/BRAIN WO CON ? INDICATIONS:? syncope ? TECHNIQUE:? Noncontrast 4.5 mm thick angled axial sections acquired from the foramen magnum to the vertex, with coronal and sagittal reformats.? For radiation dose reduction, the following was used:? automated exposure control, adjustment of mA and/or kV according to patient size.? ? COMPARISON:? None. ? FINDINGS:? Image quality:? Excellent.? ? CSF spaces:? Basal cisterns are patent.? No extra-axial fluid collections.? The ventricles are symmetric in size and shape.? ? Brain:? No intracranial bleeds or masses.? There is cerebral volume loss for age, with resultant ventricular and sulcal prominence.? There are periventricular and deep white matter chronic small vessel ischemic changes.? There is intracranial internal carotid artery atherosclerosis.? ? Skull and face:? Calvarium and visualized facial bones appear intact, without suspicious lesions.? ? Sinuses:? Visualized sinuses and mastoids are clear.? ? IMPRESSION:? No acute intracranial abnormality. ? ? Dictated by: Eric Wayne M.D. on 01/04/2022 at 9:33 ? ? CT - cervical spine: Radiologist's Impression: PROCEDURE:? CT CERVICAL SPINE WO CON ? INDICATIONS:? syncope ? TECHNIQUE:? Noncontrast 3 mm thick sections acquired from the skull base to the T4 level.? Sagittal and coronal reformats were then constructed.? For radiation dose reduction, the following was used:? automated exposure control, adjustment of mA and/or kV according to patient size.? ? COMPARISON:? None. ? FINDINGS:? Image quality:? Excellent.? ? Bones:? No acute, displaced fracture or retropulsion.? The vertebral body heights are maintained. Mild to moderate disc height loss with small posterior disc osteophyte complexes at C5-C7.? Visualized superior ribs are intact.? ? Soft tissues:? Prevertebral soft tissues are normal in thickness.? No paravertebral hematomas.? No apical pneumothoraces.? ? ? IMPRESSION:? No acute osseous abnormality. ? ? ? Dictated by: Eric Wayne M.D. on 01/04/2022 at 9:29 ? ? ECG Data Interpretation: Sinus rhythm rate 61 OH interval 170 QRS [address] changes similar to previous EKG 2020 [facility] Narrative Medical decision making narrative: The unexplained syncopal episode today. Blood work and CT are overall reassuring. He does have symptoms of concussion with ongoing nausea which now finally seemed to be controlled. No focal deficits. He ambulates without difficulty tolerating fluids. Discussion with about further workup with primary care provider is and return as needed. Discharge Plan Departure Patient Disposition: Home Clinical Impression: Syncope, Concussion Instructions: DI for Syncope in Adults (Fainting), Concussion Activity Restrictions/Additional Instructions: *You have been diagnosed with syncope and concussion *What to do: At this time please follow-up with your primary care provider, you may need further workup in regards to your passing out episode. He also have a concussion. Please limit stimulation such as screen time lytes no A's reading or any concentrated activities. *Continue to take medications as directed Zofran 4 mg every 8 hours if needed for nausea vomiting--> [facility] [place] Tylenol 1000 mg every 6 hours if needed for [id number] pain Ibuprofen 600 mg every 6 hours if needed for lkkd-ha-owrkusea pain *Follow up with your primary care provider in 2-3 days or call [phone] *Return to ER if you should have increasing pain persistent vomiting, seizures, confusion, weakness numbness tingling or any new, worsening or concerning symptoms Prescriptions: New ondansetron 4 mg tablet,disintegrating 4 mg PO Q8H PRN (Reason: nausea and vomiting) Qty: 10 0RF No Action lisinopril 5 mg tablet See Rx Instructions .ROUTE .COMPLEX Qty: 90 1RF Dose Instruction: TAKE 1 TABLET DAILY Rx Instructions: TAKE 1 TABLET DAILY amlodipine 5 mg tablet See Rx Instructions .ROUTE .COMPLEX Qty: 90 1RF Dose Instruction: TAKE 1 TABLET DAILY Rx Instructions: TAKE 1 TABLET DAILY rosuvastatin 5 mg tablet See Rx Instructions .ROUTE .COMPLEX Qty: 90 1RF Dose Instruction: TAKE 1 TABLET DAILY Rx Instructions: TAKE 1 TABLET DAILY vitamin-D 3 5,000 units PO 0RF Total restore supplement PO 0RF hydrocodone-acetaminophen 5-325 mg tablet 1 tab PO Q4-6H PRN (Reason: pain) Qty: 10 0RF amoxicillin-pot clavulanate [Augmentin] 875-125 mg tablet 1 tab PO BID Qty: 20 0RF ondansetron 4 mg tablet,disintegrating 4 mg PO TID-QID PRN (Reason: nausea and vomiting) Qty: 10 0RF Referrals: Adrien Carver DO [Primary Care Provider] -
[2022-01-04 09:13] LABS: Add Manual Diff / Slide Review NO; Basophils Absolute Auto 100 /uL (0-100); Basophils Percent Auto 0.9 % (0-2); Eosinophils Absolute Auto 100 /uL (0-450); Eosinophils Percent Auto 1.3 % (2-4); Hematocrit 47.6 % (41-53); Hemoglobin 16.2 g/dL (13.5-17.5); Lymphocytes Absolute Auto 3800 /uL (1100-4500); Lymphocytes Percent Auto 40.3 % (25-40); Mean Corpuscular HGB Conc 34.1 % (30-36); Mean Corpuscular Hemoglobin 31.7 PG (26-34); Monocytes Absolute Auto 1000 /uL (0-900); Monocytes Percent Auto 10.5 % (3-14); Neutrophils Absolute Auto 4400 /uL (1500-7000); Platelet Count 230 X10^3/uL (150-400); Red Blood Cell Count 5.11 X10^6/uL (4.5-5.9); White Blood Cell Count 9.4 X10^3/uL (4.5-11.0)
[2022-01-04 09:17] LABS: Alanine Aminotransferase 38 IU/L (<50); Albumin 4.8 g/dL (3.5-5.0); Albumin Globulin Ratio 1.5 (1.0-2.8); Alkaline Phosphatase 65 U/L (38-126); Aspartate Aminotransferase 34 IU/L (17-59); BUN Creatinine Ratio 13.2 (6-22); Bilirubin Total 1.4 mg/dL (0.2-1.3); Blood Urea Nitrogen 12 mg/dL (9-20); Calcium 9.4 mg/dL (8.4-10.2); Carbon Dioxide 23 mmol/L (22-32); Chloride 108 mmol/L (98-107); Creatine Kinase 94 U/L (55-170); Estimated Glomerular Filt Rate > 60.0 mL/min (>60); Globulin 3.1 g/dL (1.7-4.1); Glucose 163 mg/dL (80-110); HEMOLYSIS 39 (0-50); Lipase 104 U/L (23-300); Potassium 3.8 mmol/L (3.4-5.1); Sodium 138 mmol/L (137-145); Total Protein 7.9 g/dL (6.3-8.2)
[2022-01-04 09:28] LABS: Troponin I < 0.012 ng/mL (0.01-0.034)
[2022-01-04] MEDS: SODIUM CHLORIDE 0.9% 1,000 ML 1000 ML IV (09:46)
[2022-01-04] MEDS: METOCLOPRAMIDE 10 MG/2 ML INJ IV (09:47)
--- NOTE | 2022-01-04 12:44 | PC.NURSE ---
ambulated patient around the department with a gait belt. Patient was able to successfully ambulate once around without any wobbles. Patient denied having any nausea or dizziness during or directly after ambulation.
--- NOTE | 2022-01-04 12:51 | PC.NURSE ---
tolerating ambulation trial without difficulty steady gate no dizziness walked full jamul around er unit. tolerating po challenge well no nausea or vomiting with.
[2022-01-04 12:53] LABS: Amorphous Sediment Urine 3+; Bacteria Urine None Seen; Culture Indicated Urine Cult Not Indicated; RBC Urine None Seen (0-5/HPF); WBC Urine None Seen (0-5/HPF)
== END 2022-01-04 13:13 | disposition home or self-care (01) ==
PROVIDERS: Emergency Provider Emergency Medicine; PCP Family Medicine
DX: S06.0X1A Concussion with loss of consciousness of 30 minutes or less, initial encounter (principal); R55 Syncope and collapse; M54.2 Cervicalgia; R03.0 Elevated blood-pressure reading, without diagnosis of hypertension; W18.30XA Fall on same level, unspecified, initial encounter
CPT/HCPCS: 36415; 70450; 71045; 72125; 80053; 81003; 81015; 82550; 83690; 84484; 85025; 93005; 93010; 96361; 96374; 99284; 99285; J2765

== ENCOUNTER → 2022-01-06 08:27 | Outpatient (CLI) | payer MEDICARE, SELFPAY ==
[2022-01-06 09:58] LABS: Cholesterol 169 mg/dL (140-199); Glucose 101 mg/dL (80-110); HDL Cholesterol 49 mg/dL (40-60); LDL Cholesterol Calculated 93 mg/dL (<100); Triglycerides 135 mg/dL (35-150)
[2022-01-06 09:59] LABS: Hemoglobin A1C% w Est Avg Glu 5.3 % (4.0-6.0)
[2022-01-06 11:08] LABS: TSH w/ Reflex to FT4 1.84 uIU/mL (0.47-4.68)
== END ==
PROVIDERS: Registered Nurse Diabetes Educator; PCP Family Medicine; Referring Provider Family Medicine; Visit Provider Family Medicine
DX: R73.9 Hyperglycemia, unspecified (principal); I10 Essential (primary) hypertension
CPT/HCPCS: 36415; 80061; 82947; 83036; 84443

== ENCOUNTER → 2022-02-08 14:52 | Outpatient (CLI) | payer MEDICARE, SELFPAY ==
--- NOTE | 2022-02-21 14:14 | PM.CARDMON.1 ---
Cartoon Animator Report Referral & Results Date Patient Seen: 02/08/22 Requesting provider: Viviane Quinones Indication: Abnormal ECG Duration of monitoring (days): 7 Diary information: There were no patient events to review Data: Minimum heart rate identified was 50 beats per minute at 23:35 on 02/11/2022 Maximum sinus heart rate identified was 147 beats per minute at 18:31 on 02/14/2022 Maximum overall heart rate was 193 beats per minute at 15:46 on 02/10/2022 during a run of nonsustained ventricular tachycardia Less than 1% of identified beats were ventricular or supraventricular ectopic in origin, which would classify them as rare. There were 3 runs of nonsustained monomorphic ventricular tachycardia. The fastest was the 5 beat interval noted above longest was 8 beats There were 3 runs of SVT the fastest being 6 beats at a rate of 182 beats per minute and the longest lasting 14 beats No pauses or atrial fibrillation identified on this study Intermittent bundle branch block was also noted Impression: alarm security or surveillance monitor demonstrating rare brief runs of nonsustained ventricular tachycardia as well as very rare brief runs of SVT as above
== END ==
PROVIDERS: PCP Family Medicine; Referring Provider Registered Nurse; Visit Provider Registered Nurse
DX: R94.31 Abnormal electrocardiogram [ECG] [EKG] (principal); R00.1 Bradycardia, unspecified
CPT/HCPCS: 93242; 93244

== ENCOUNTER → 2022-03-14 15:12 | Outpatient (CLI) | payer MEDICARE, SELFPAY ==
[2022-03-14 16:35] LABS: Magnesium 2.1 mg/dL (1.6-2.3)
[2022-03-14 17:09] LABS: Prostate Specific Antigen 4.23 ng/mL (0.10-4.00)
== END ==
PROVIDERS: PCP Family Medicine; Referring Provider Internal Medicine Cardiovascular Disease; Visit Provider Internal Medicine Cardiovascular Disease
DX: N40.1 Benign prostatic hyperplasia with lower urinary tract symptoms (principal); I10 Essential (primary) hypertension; N13.8 Other obstructive and reflux uropathy; R97.20 Elevated prostate specific antigen [PSA]
CPT/HCPCS: 36415; 83735; 84153

== ENCOUNTER → 2022-05-22 09:40 | Outpatient (CLI) | payer MEDICARE, SELFPAY ==
--- NOTE | 2022-05-22 | DI.NM.S_ITS ---
PROCEDURE: NM EITAN PERF SPECT R&S PHARM Rest and pharmacological stress myocardial perfusion SPECT with gated imaging and ejection fraction RADIOPHARMACEUTICAL: 12.1 mCi Tc-99m tetrafosmin IV at rest and 25.2 mCi Tc-99m tetrafosmin IV at peak effect of pharmacological stress. [id number] was performed. INDICATIONS: Left bundle-branch block, unspecified TECHNIQUE: Radiopharmaceutical was injected at peak stress test, and also at rest. SPECT images were obtained. SPECT myocardial perfusion images were displayed in short axis, horizontal long axis, and vertical long axis views. Gated images were reviewed using [email or web address] software. COMPARISON: None. CARDIAC STRESS: A pharmacologic stress test was performed under the supervision of an attending staff, using an infusion of lexiscan 0.4mg IV X1. Hemodynamic data: There is normal blood pressure and heart rate response to pharmacologic stress. Symptoms: The patient denied anginal chest pain. Aminophylline: none EKG: Resting ECG showed sinus rhythm with LBBB. ECG non-diagnostic with lexiscan given baseline LBBB; no ectopy. FINDINGS: Raw data: There is good myocardial uptake of radiotracer. No significant motion artifacts. Left ventricle function: Gated images demonstrate normal left ventricular wall thickening. No segmental wall motion abnormalities. No transient ischemic dilation; TID is 0.97 (normal less than 1.3). Left ventricle resting end diastolic volume is 125 mL. Left ventricle stress ejection fraction is 71%; normal range is above 45%. Myocardial perfusion: There is normal distribution of activity in the right and left ventricular myocardium on stress prone images. No fixed or reversible perfusion defects. IMPRESSION: Low risk, normal pharmaceutical nuclear stress 1) No perfusion evidence of ischemia or infarction. Normal stress prone images. 2) Normal left ventricular size and systolic function (EF post stress 71%). 3) ECG non-diagnostic with lexiscan given baseline LBBB. 4) No angina during the study. 5) No prior nuclear stress test available for comparison. Dictated by: Artem Sandoval MD on 05/22/2022 at 16:30 Approved by: Artem Sandoval MD on 05/22/2022 at 16:33
[2022-05-22 12:13] LABS: COVID19 -Nasal RAPID Negative (Negative)
--- NOTE | 2022-05-22 15:10 | PM.TREADMILL ---
Cardiac Stress Test Report Referral & Results Date Patient Seen: 05/22/22 Time Patient Seen: 15:10 Requesting provider: Artem Sandoval Indication: Left Bundle Branch Block Rest ECG: Sinus rhythm with LBBB Procedure Note: After Lexiscan injection had minimal dyspnea, no chest discomfort After Lexiscan injection had no significant ST changes No ectopy Impression: Normal Lexiscan stress test Nuclear images pending Please note: Actual ECG tracings can be found in the PACS system.
== END ==
PROVIDERS: PCP Family Medicine; Referring Provider Internal Medicine Cardiovascular Disease; Visit Provider Internal Medicine Cardiovascular Disease
DX: I44.7 Left bundle-branch block, unspecified (principal); I47.2 Ventricular tachycardia; Z20.822 Contact with and (suspected) exposure to COVID-19
CPT/HCPCS: 78452; 87635; 93017; A9502; J2785

== ENCOUNTER → 2023-03-02 14:53 | Outpatient (CLI) | payer MEDICARE, SELFPAY ==
[2023-03-02 19:52] LABS: Prostate Specific Antigen 4.56 ng/mL (0.10-4.00)
== END ==
PROVIDERS: PCP Family Medicine; Referring Provider Specialist; Visit Provider Specialist
DX: R97.20 Elevated prostate specific antigen [PSA] (principal)
CPT/HCPCS: 36415; 84153

== ENCOUNTER → 2023-03-20 07:37 | Outpatient (CLI) | payer MEDICARE, SELFPAY ==
[2023-03-20 08:19] LABS: Add Manual Diff / Slide Review NO; Basophils Absolute Auto 100 /uL (0-100); Basophils Percent Auto 1.1 % (0-2); Eosinophils Absolute Auto 100 /uL (0-450); Eosinophils Percent Auto 2.4 % (2-4); Hematocrit 44.2 % (41-53); Hemoglobin 15.5 g/dL (13.5-17.5); Lymphocytes Absolute Auto 2000 /uL (1100-4500); Lymphocytes Percent Auto 36.5 % (25-40); Mean Corpuscular Hemoglobin 32.3 PG (26-34); Mean Corpuscular Volume 92.2 fL (80-100); Monocytes Absolute Auto 600 /uL (0-900); Monocytes Percent Auto 10.4 % (3-14); Neutrophils Absolute Auto 2600 /uL (1500-7000); Neutrophils Percent Auto 49.6 % (50-75); Platelet Count 166 X10^3/uL (150-400); White Blood Cell Count 5.3 X10^3/uL (4.5-11.0)
[2023-03-20 08:36] LABS: Alanine Aminotransferase 47 IU/L (<50); Albumin 4.1 g/dL (3.5-5.0); Albumin Globulin Ratio 1.6 (1.0-2.8); Alkaline Phosphatase 72 U/L (38-126); Aspartate Aminotransferase 32 IU/L (17-59); BUN Creatinine Ratio 11.8 (6-22); Bilirubin Total 0.7 mg/dL (0.2-1.3); Blood Urea Nitrogen 9 mg/dL (9-20); Calcium 9.1 mg/dL (8.4-10.2); Carbon Dioxide 25 mmol/L (22-32); Chloride 105 mmol/L (98-107); Cholesterol 189 mg/dL (140-199); Estimated Glomerular Filt Rate > 60 mL/min (>60); Globulin 2.5 g/dL (1.7-4.1); Glucose 110 mg/dL (80-110); HDL Cholesterol 49 mg/dL (40-60); HEMOLYSIS < 15 (0-50); LDL Cholesterol Calculated 110 mg/dL (<100); Potassium 4.1 mmol/L (3.4-5.1); Sodium 137 mmol/L (137-145); Total Protein 6.6 g/dL (6.3-8.2); Triglycerides 152 mg/dL (35-150)
[2023-03-20 09:45] LABS: Prostate Specific Antigen Scrn 4.94 ng/mL (0.1-4.0)
== END ==
PROVIDERS: PCP Family Medicine; Referring Provider Family Medicine; Visit Provider Family Medicine
DX: I10 Essential (primary) hypertension (principal); Z12.5 Encounter for screening for malignant neoplasm of prostate; I44.7 Left bundle-branch block, unspecified; N13.8 Other obstructive and reflux uropathy; N40.1 Benign prostatic hyperplasia with lower urinary tract symptoms; Z87.898 Personal history of other specified conditions
CPT/HCPCS: 36415; 80053; 80061; 85025; G0103

== ENCOUNTER → 2023-10-03 08:15 | Outpatient (CLI) | payer MEDICARE, SELFPAY ==
[2023-10-03 09:52] LABS: Prostate Specific Antigen 4.75 ng/mL (0.10-4.00)
== END ==
PROVIDERS: PCP Family Medicine; Referring Provider Specialist; Visit Provider Specialist
DX: R97.20 Elevated prostate specific antigen [PSA] (principal)
CPT/HCPCS: 36415; 84153

== ENCOUNTER → 2023-11-27 11:42 | Outpatient (CLI) | payer MEDICARE, SELFPAY ==
[2023-11-27 12:46] LABS: BUN Creatinine Ratio 14.3 (6-22); Blood Urea Nitrogen 10 mg/dL (9-20); Estimated Glomerular Filt Rate > 60 mL/min (>60)
== END ==
PROVIDERS: PCP Family Medicine; Referring Provider Specialist; Visit Provider Specialist
DX: N40.0 Benign prostatic hyperplasia without lower urinary tract symptoms (principal); R97.20 Elevated prostate specific antigen [PSA]; Z87.442 Personal history of urinary calculi; R10.9 Unspecified abdominal pain
CPT/HCPCS: 36415; 82565; 84520

== ENCOUNTER → 2023-11-28 13:13 | Outpatient (CLI) | payer MEDICARE, SELFPAY ==
--- NOTE | 2023-11-28 13:15 | DI.CT.S_ITS ---
PROCEDURE: CT IVP A/P W/WO INDICATIONS: hematuria TECHNIQUE: Optional 5 mm thick noncontrast images acquired from the diaphragm to the symphysis pubis. After the administration of intravenous contrast, 5 mm thick images acquired from the diaphragm to the symphysis pubis after a 10-minute delay. 2 mm thick coronal and sagittal reformats were then performed of the kidneys and ureters. For radiation dose reduction, the following was used: automated exposure control, adjustment of mA and/or kV according to patient size. COMPARISON: [facility], CT, CT ABDOMEN PELVIS W CON, 08/02/2021, 10:49. [facility], CT, CT KIDNEY URETER BLADDER (KUB), 11/10/2020, 9:11. FINDINGS: Image quality: Diagnostic. Kidneys and Ureters: Both kidneys are normal in size, without hydronephrosis or nephrolithiasis. No perinephric fat stranding. There is normal bilateral renal enhancement. A partially peripherally calcified, high-density cyst arises from the medial upper pole right renal cortex measuring 1.8 cm, stable compared to the prior exams. Other small cortical cysts in each kidney are too small to characterize. No suspicious solid masses. Renal calyces appear normal in morphology when filled with contrast. Opacified portions of both ureters demonstrate normal caliber Bladder: Bladder wall thickness is normal. No calcified bladder stones. Enlarged prostate gland with hypertrophied median lobe indents on the base of the bladder. OTHER: Lower chest: Unremarkable. Liver: No solid mass. Gallbladder: Surgically absent. Biliary ducts: No biliary dilation. Pancreas: Normal. Spleen: Size is within normal limits. Adrenal Glands: No adrenal nodules. Stomach and Bowel: Distal descending and sigmoid colon diverticulosis without acute inflammatory changes. Stomach and small bowel loops are otherwise normal. Peritoneum: No abnormal intraperitoneal fluid. No free air. Ventral Wall: No hernia. Abdominal Nodes: No retroperitoneal or mesenteric adenopathy by size criteria. Vessels: Aorta and inferior vena cava are normal in size. PELVIS: Pelvic Organs: Unremarkable. Pelvic Nodes: No enlarged lymph nodes. Miscellaneous: Small fat containing left inguinal hernia. Bones: No aggressive osseous abnormality. IMPRESSION: No urinary calcification or evidence of obstructive uropathy. Stable 1.8 cm partially calcified right upper pole renal mass. Moderate prostatomegaly. Colonic diverticulosis. Dictated by: Elizabeth Rodriguez M.D. on 11/28/2023 at 17:38 Approved by: Elizabeth Rodriguez M.D. on 11/28/2023 at 17:48
== END ==
PROVIDERS: PCP Family Medicine; Referring Provider Specialist; Visit Provider Specialist
DX: N40.0 Benign prostatic hyperplasia without lower urinary tract symptoms (principal); R31.29 Other microscopic hematuria; N28.89 Other specified disorders of kidney and ureter; K57.30 Diverticulosis of large intestine without perforation or abscess without bleeding
CPT/HCPCS: 74178; Q9967

== ENCOUNTER → 2024-03-22 07:14 | Outpatient (CLI) | payer MEDICARE, SELFPAY ==
[2024-03-22 08:42] LABS: Influenza A - CEPHEID Flu A NEGATIVE (NEGATIVE); Influenza B - CEPHEID Flu B NEGATIVE (NEGATIVE); Respiratory Syncytial Virus Negative (Negative)
[2024-03-22 08:43] LABS: COVID-19 CEPHEID 4-PLEX PCR Negative (Negative)
== END ==
PROVIDERS: PCP Family Medicine; Visit Provider Registered Nurse
DX: R05.1 Acute cough (principal)
CPT/HCPCS: 0241U

== ENCOUNTER → 2024-03-31 06:49 | Outpatient (CLI) | payer MEDICARE, SELFPAY ==
[2024-03-31 07:55] LABS: Add Manual Diff / Slide Review NO; Basophils Absolute Auto 100 /uL (0-100); Basophils Percent Auto 0.8 % (0-2); Eosinophils Absolute Auto 200 /uL (0-450); Eosinophils Percent Auto 2.2 % (2-4); Hematocrit 45.3 % (41-53); Lymphocytes Absolute Auto 2600 /uL (1100-4500); Lymphocytes Percent Auto 35.7 % (25-40); Mean Corpuscular HGB Conc 35.3 % (30-36); Mean Corpuscular Hemoglobin 32.5 PG (26-34); Monocytes Absolute Auto 700 /uL (0-900); Monocytes Percent Auto 9.8 % (3-14); Neutrophils Absolute Auto 3800 /uL (1500-7000); Neutrophils Percent Auto 51.5 % (50-75); Platelet Count 189 X10^3/uL (150-400); Red Blood Cell Count 4.92 X10^6/uL (4.5-5.9); Red Cell Distribution Width 13.2 % (11.6-14.8); White Blood Cell Count 7.3 X10^3/uL (4.5-11.0)
[2024-03-31 08:26] LABS: Alanine Aminotransferase 36 IU/L (<50); Albumin 4.2 g/dL (3.5-5.0); Albumin Globulin Ratio 1.8 (1.0-2.8); Alkaline Phosphatase 69 U/L (38-126); Aspartate Aminotransferase 31 IU/L (17-59); BUN Creatinine Ratio 12.8 (6-22); Bilirubin Total 1.1 mg/dL (0.2-1.3); Blood Urea Nitrogen 11 mg/dL (9-20); Calcium 9.2 mg/dL (8.4-10.2); Carbon Dioxide 27 mmol/L (22-32); Chloride 106 mmol/L (98-107); Cholesterol 187 mg/dL (140-199); Estimated Glomerular Filt Rate > 60 mL/min (>60); Globulin 2.3 g/dL (1.7-4.1); Glucose 100 mg/dL (80-110); HDL Cholesterol 50 mg/dL (40-60); HEMOLYSIS < 15 (0-50); LDL Cholesterol Calculated 87 mg/dL (<100); Potassium 4.1 mmol/L (3.4-5.1); Sodium 138 mmol/L (137-145); Total Protein 6.5 g/dL (6.3-8.2); Triglycerides 249 mg/dL (35-150)
[2024-03-31 08:54] LABS: Prostate Specific Antigen 5.64 ng/mL (0.10-4.00)
== END ==
PROVIDERS: Specialist; PCP Family Medicine; Referring Provider Family Medicine; Visit Provider Family Medicine
DX: R97.20 Elevated prostate specific antigen [PSA] (principal); I10 Essential (primary) hypertension; E78.5 Hyperlipidemia, unspecified
CPT/HCPCS: 36415; 80053; 80061; 84153; 85025

== ENCOUNTER → 2024-04-16 13:42 | Outpatient (CLI) | payer MEDICARE, SELFPAY | PROVIDERS: PCP Family Medicine; Visit Provider Specialist | DX: N40.1 Benign prostatic hyperplasia with lower urinary tract symptoms (principal); N13.8 Other obstructive and reflux uropathy; R97.20 Elevated prostate specific antigen [PSA]; Z87.442 Personal history of urinary calculi | CPT/HCPCS: 51798; 81002; 87086; 99214 ==

== ENCOUNTER → 2024-04-30 09:36 | Outpatient (CLI) | payer MEDICARE, SELFPAY ==
[2024-05-02 11:00] LABS: PSA Free % 32.7 % (.); PSA, Total 5.2 ng/mL (0.0-4.0)
== END ==
PROVIDERS: Family Medicine; PCP Family Medicine; Referring Provider Specialist; Visit Provider Specialist
DX: Z13.29 Encounter for screening for other suspected endocrine disorder (principal); R97.20 Elevated prostate specific antigen [PSA]; N40.0 Benign prostatic hyperplasia without lower urinary tract symptoms; R53.83 Other fatigue
CPT/HCPCS: 36415; 84153; 84154; 84402; 84403

== ENCOUNTER → 2024-06-08 12:43 | Outpatient (CLI) | payer MEDICARE, SELFPAY ==
--- NOTE | 2024-06-08 12:44 | DI.CT.S_ITS ---
PROCEDURE: CT SINUS SCREEN WO CON INDICATIONS: CHRONIC PANSINUSITIS TECHNIQUE: Noncontrast 3.0 mm axial images acquired from the frontal sinuses to the mid-sella, with coronal and sagittal reformats. For radiation dose reduction, the following was used: automated exposure control, adjustment of mA and/or kV according to patient size. COMPARISON: None. FINDINGS: Image quality: Excellent. Maxillary Sinuses: No bony remodeling or destruction. Sinuses are clear. Ethmoid Air Cells: No bony remodeling or destruction. Sinuses are clear. Sphenoid Sinuses: No bony remodeling or destruction. Sinuses are clear. Frontal Sinuses: No bony remodeling or destruction. Sinuses are clear. Ostiomeatal Complexes: Ostiomeatal complexes are patent. No Jess cells. Miscellaneous: Visualized intra-orbital contents are normal. Bilateral lens replacements. Right radha bullosa. No paradoxical turbinate curvature. Mild leftward nasal septal deviation. IMPRESSION: The paranasal sinuses are clear. Dictated by: Terrance Gary M.D. on 06/08/2024 at 19:17 Approved by: Terrance Gary M.D. on 06/08/2024 at 19:18
== END ==
LOC: CT 12:43
PROVIDERS: PCP Family Medicine; Referring Provider Otolaryngology; Visit Provider Otolaryngology
DX: J32.4 Chronic pansinusitis (principal); J01.41 Acute recurrent pansinusitis; J34.3 Hypertrophy of nasal turbinates; J34.2 Deviated nasal septum
CPT/HCPCS: 70486

== ENCOUNTER → 2025-04-16 12:11 | Outpatient (CLI) | payer MEDICARE, SELFPAY ==
[2025-04-16 13:52] LABS: Prostate Specific Antigen 5.81 ng/mL (0.10-4.00)
== END ==
PROVIDERS: PCP Family Medicine; Referring Provider Urology; Visit Provider Urology
DX: N40.1 Benign prostatic hyperplasia with lower urinary tract symptoms (principal); R97.20 Elevated prostate specific antigen [PSA]; N13.8 Other obstructive and reflux uropathy
CPT/HCPCS: 36415; 84153

== ENCOUNTER → 2025-05-18 12:36 | Outpatient (CLI) | payer MEDICARE, SELFPAY ==
--- NOTE | 2025-05-18 12:37 | DI.US.S_ITS ---
PROCEDURE: US RENAL COMPLETE INDICATIONS: Right renal mass TECHNIQUE: Real-time scanning was performed of the kidneys and bladder, with image documentation. COMPARISON: None. FINDINGS: Kidneys: Kidneys are normal in size. Right kidney measures 12 cm long; left kidney measures 12 cm long. Right renal cortical thickness is 1.9 cm; left renal cortical thickness is 1.3 cm. Renal cortical echotexture is normal. No hydronephrosis or nephrolithiasis. No suspicious solid mass lesions. Bladder: Pre-void bladder volume is 189 mL. Post-void residual is 40 mL. Pre- void images demonstrate no intraluminal masses or stones. On pre-void images, both ureteral jets are noted with color Doppler interrogation. (Of note, ureteral jets may not be detectable in up to 25% of cases due to insufficient differences in specific gravity between ureteral and bladder urine). Miscellaneous: No free pelvic fluid. The prostate gland is enlarged measuring 6.6 x 4.8 x 5.1 cm. IMPRESSION: Unremarkable sonographic exam of the kidneys and bladder. Dictated by: Massiel Zaman M.D. on 05/18/2025 at 15:05 Approved by: Massiel Zaman M.D. on 05/18/2025 at 15:08
== END ==
PROVIDERS: PCP Family Medicine; Referring Provider Urology; Visit Provider Urology
DX: N28.89 Other specified disorders of kidney and ureter (principal)
CPT/HCPCS: 76770